=== PATIENT | female | born 1970 | race Caucasian/White ===

== ENCOUNTER 2020-04-15 06:03 | Day surgery (SDC) | payer BC ==
[~2020-04-15] VITALS: Ht 160 cm; Wt 54.4 kg
[~2020-04-15 06:03] MED LIST: ADVIL PM CAPLE1 EACH PO; DOXYCYCLINE 10100 M2 PO; LAMOTRIGINE ODT25 MG PO; MELATONIN1 MG PO; PLAQUENIL200 MG PO; RESTASIS1 EACH OPHTHALMIC; VALACYCLOVIR500 MG PO; XANAX 0.5 MG0.5 MG PO
[2020-04-15 06:42] VITALS: BP 128/83
--- NOTE | 2020-04-16 15:52 | O ---
[address] [address] OPERATIVE REPORT Name: NADIA GUTIERREZ [facility] [id number] Admission: 04/15/20 Attend Phys: Saw Alaniz MD Discharge: 04/15/20 Date of : 72 Report #: [id number] THIS REPORT FOR: cc: Veronica Zheng MD, Staci M. MD McCabe,Saw Bond MD ~ DATE OF SERVICE: 04/15/2020 SERVICE: Orthopedics. FACILITY: [place]. SURGEON: Saw Alaniz MD LOCAL TRUCK DRIVER: Sara Geronimo. INDICATION FOR LOCAL TRUCK DRIVER: Extremity positioning, suture management, arthroscope management, assistance with repair. PREOPERATIVE DIAGNOSES: 1. Right hip pain. 2. Right hip femoroacetabular impingement. 3. Right hip labral tear. POSTOPERATIVE DIAGNOSES: 1. Right hip pain. 2. Right hip femoroacetabular impingement. 3. Right hip labral tear. 4. Right hip acetabular rim chondromalacia. PROCEDURES: 1. Right hip arthroscopic labral repair. 2. Right hip arthroscopic Cam osteochondroplasty. 3. Right hip limited acetabular chondroplasty. 4. Right hip arthroscopic subspine decompression. COMPLICATIONS: None. DRAINS: None. SPECIMENS: None. ANESTHESIA: General with regional. FINDINGS: [address] [address] OPERATIVE REPORT Name: NADIA GUTIERREZ [facility] #: [facility]ITALBushra#: [id number] Admission: 04/15/20 Attend Phys: Saw Alaniz MD Discharge: 04/15/20 Date of : 72 Report #: [id number] 1. Anteromedially detached labral tear with overall healthy-appearing labral tissue. 2. Labral repair with Rimrock CinchLock suture anchor x 5. 3. Rim chondromalacia at the chondral labral junction, treated with chondroplasty. 4. Chondromalacia of the femoral head and focal area of chondromalacia of acetabulum, but no full thickness lesions present. 5. Transverse capsulotomy repaired with #2 Vicryl x 4. 6. Subspine impingement causing crossover sign on the preoperative imaging, resulting in extraarticular hip impingement, treated with subspine decompression. This required additional capsular dissection with the cautery and the shaver and then resection with the bur. HISTORY: The patient is a 50-year-old female who sustained an acute injury to her right hip in January. She had been treated for greater than 3 months conservatively with rest, activity modifications, physical therapy, oral medicines. She had intra-articular injection, which provided temporary relief, but this was not sustained. She had failed oral medicines and modalities. She had imaging consistent with femoroacetabular impingement with alpha angle of 63 degrees and an MRI showed a labral tear. There was some signal within the labrum and the labrum was large in terms of the overall size, so I felt that there was potential higher likelihood that the tissue itself was quite degenerated and of poor quality, swollen and irreparable and would be better served with a labral allograft reconstruction, so we made plans for this. Her physical examination was consistent with hip impingement with positive impingement sign. She had pain affecting her activities of daily living and she was unable to work and she had positive improvement temporarily with the intra-articular injection. The x-ray showed no signs of osteoarthritis and the [place] grade is 0. Risks, benefits, alternatives, and indication of surgery discussed with her in detail preoperatively. Risks include but not limited to pain, bleeding, infection, injury nerves or blood vessels, persistent pain despite surgical intervention, failure of any repairs, progression of preexisting chondral injury, stiffness, need for further surgery as well as complications related to anesthesia. Despite the risks, she wished to proceed. PROCEDURE IN DETAIL: After the right lower extremity was correctly identified as the operative extremity, the patient underwent regional nerve block. She was then taken to the operating room where general anesthesia was induced without complication. She was padded appropriately. Prophylactic antibiotics were administered at appropriate time. C-arm was brought in to identify the extend of the Cam deformity, which was located about 10-degree position to the 70-degree position and had a maximal alpha angle of about 63-65 degrees. Right hip was then prepped and draped in standard sterile fashion. Time-out procedure [address] [address] OPERATIVE REPORT Name: NADIA GUTIERREZ Room #: DEP [facility] Moises#: [id number] Admission: 04/15/20 Attend Phys: Saw Alaniz MD Discharge: 04/15/20 Date of : 72 Report #: [id number] performed. Traction was applied, standard anterolateral viewing portal was established under fluoroscopic guidance and then the anteromedial portal under arthroscopic and fluoroscopic guidance as well. There was synovitis and erythema of the capsule. This will be the indication for continuous passive motion machine usage postoperatively in order to prevent adhesions and scarring as these can be reasons for reoperation in this patient population. The transverse capsulotomy was then performed and the shaver was used to perform a limited synovectomy. There was a loose segment of synovium that was affixed to the femoral head. This was freely floating upon placing the scope into the hip. This was resected with the shaver. The capsule was reflected off the dorsal side of the labrum. There was clearly a detached labral tear, but this was not directly anteriorly, but rather was located more anteromedially around the corner based on the size of the labrum, but it is overall appearance in terms of tissue quality, we decided that repair may be a viable option as she did not have significant fraying or swelling of pathologic nature. The labrum was probed and it was found to be mobile and as stated of good tissue quality. I made decision to prepare the acetabular rim for labral repair and see if the labrum was adequately mobilized and reduced to its anatomic position and if so, would proceeded with the labral repair. The capsule as stated was reflected off the dorsal side of the labrum and this allowed the labrum to be detached further laterally and lowered into the joint while maintaining the chondral labral junction more laterally. She had complete disruption of the chondral labral junction more medially. The shaver and the cautery were used to isolate the anterior inferior iliac spine base to expose the subspine impingement and then the bur was used to perform a subspine decompression in standard fashion. The bur was then used to gently decorticate the acetabular rim to create a fresh bleeding surface for labral repair. This was not as a pincer over coverage scenario, so no significant rim resection was performed. With the scope in position to directly visualize placement of the far medial anchor as well as fluoroscopy for guidance, the first anchor was placed and then a cerclage suture was passed and good elevation of the labrum was achieved, pulling it out of the intraarticular space and reducing it to the acetabular rim. I then placed a second anchor just slightly more anterior to this working from medial to lateral and intentionally placed a second anchor closer than the typical spacing in order to reinforce this reduction and compression of the labrum against the acetabular rim to confirm that a secure repair was achieved and that repair was satisfactory. A second anchor was placed in a similar fashion with a cerclage suture and after securing the second anchor, I was happy with the appearance of the far medial aspect of the labral repair and we made plans to proceed working laterally. The third and fourth anchors were placed in a similar fashion and labrum was probed at this point and stability was restored. As labrum turned the corner around to the lateral aspect of the acetabulum heading posteriorly, there was still some residual chondral wave sign and so I decided to place a fifth anchor in order to secure this and prevent any further propagation. In the course of the placement of the second anchor, to enhance the vector of the [address] [address] OPERATIVE REPORT Name: NADIA GUTIERREZ Room #: DEP [facility] Moises#: [id number] Admission: 04/15/20 Attend Phys: Saw Alaniz MD Discharge: 04/15/20 Date of : 72 Report #: [id number] suture itself, I established a distal anterolateral accessory portal and used a suture retriever device to hold the suture in ideal position as it was being tensioned and then allowed us to compress against the labrum. The scope was placed into the anteromedial portal and the working portal was made laterally and then we prepared the rim laterally and placed the fifth anchor with a cerclage suture providing good rest, compression of the labrum. The labrum was then probed and found to be stable and then the shaver was used to complete a chondroplasty of the chondral labral junction and resect any of the granulation tissue that had formed in attempt to heal the detached labral tear more medially. Stable tissues were achieved without any residual pathology and no full thickness articular cartilage lesions were noted. At this point, traction was let down and the labrum was seen to sit flush against the femoral head. The hip was flexed up. Attention turned towards the peripheral compartment. There was a moderate size Cam deformity that was more proximal and did not extend significantly distal on the neck and so the transverse capsulotomy was sufficient to access the entire Cam deformity and the bur was used to perform a Cam osteoplasty in a standard fashion. Instruments were removed. C-arm was brought in and the resection was assessed. It was found to be satisfactory, so final x-rays were taken. Scope was placed back into the hip. The bony debris was lavaged out of the hip and then transverse capsulotomy was closed with a total of four #2 Vicryl sutures. Instruments were removed. Portal sites were closed. Sterile dressing was applied. The patient was awakened from anesthesia and taken to recovery room in stable condition. No complications. All counts were correct. <ELECTRONICALLY SIGNED> By: Saw Alaniz MD 04/16/20 [id number] Saw Alaniz MD /nt
== END 2020-04-15 11:50 | disposition home or self-care (01) ==
LOC: OR 06:03 → TBA 06:03 → OR 07:55
PROVIDERS: ATTEND Orthopaedic Surgery Sports Medicine
DX: M25.851 Other specified joint disorders, right hip (principal); S73.191A Other sprain of right hip, initial encounter; M94.251 Chondromalacia, right hip; F32.9 Major depressive disorder, single episode, unspecified; F41.9 Anxiety disorder, unspecified; Z98.890 Other specified postprocedural states; Z79.899 Other long term (current) drug therapy; Z90.710 Acquired absence of both cervix and uterus; Z88.8 Allergy status to other drugs, medicaments and biological substances; W19.XXXA Unspecified fall, initial encounter; Y93.89 Activity, other specified; Y92.89 Other specified places as the place of occurrence of the external cause; Y99.8 Other external cause status
CPT/HCPCS: 50010; 50101; 50386; 51320; 51538; 52001; 52282; 52304; 52313; 54118; 56524; 56527; 57092; 57103; 58273; 58274; 62110; 62900; 64039; 70005